=== PATIENT | female | born 1970 | race Caucasian/White ===

== ENCOUNTER 2020-08-18 17:30 | Outpatient (CLI) | payer OTHER, SELFPAY ==
--- NOTE | ~2020-08-18 | MM_ITS ---
EXAMINATION: MM screening denise BI w judson HISTORY: Screening mammogram TECHNIQUE: Craniocaudal and mediolateral oblique 3-D tomosynthesis images were obtained and synthetic 2-D images were generated. CAD analysis was submitted and interpreted. COMPARISON: 12/19/2018 bilateral digital screening mammogram 10/14/2017 diagnostic right digital mammogram and complete right breast ultrasound 10/07/2017, 10/11/2015 bilateral digital screening mammogram examinations BREAST PARENCHYMAL COMPOSITION: The breasts are heterogeneously dense, which may obscure small masses . FINDINGS: There is no evidence of suspicious mass, calcification, or architectural distortion to sugg est malignancy in either breast. There has been no suspicious interval change. IMPRESSION: 1. No mammographic evidence of malignancy. 2. Recommend routine screening mammography in one year. BI-RADS Category 1: Negative Reviewed, dictated and finalized at location A.
== END 2020-08-18 17:31 | disposition home or self-care (01) ==
LOC: ANHIMG 17:34
PROVIDERS: PCP Family Medicine; Visit Provider Obstetrics & Gynecology
DX: Z12.31 Encounter for screening mammogram for malignant neoplasm of breast (principal)
CPT/HCPCS: 77063; 77067

== ENCOUNTER 2021-08-27 13:24 | Emergency (ER) | payer OTHER, SELFPAY ==
[2021-08-27 13:31] VITALS: BP 151/89; PULSE 98; RESP 18; TEMP 36.6; O2SAT 97
--- NOTE | 2021-08-27 16:03 | PC.NURSE ---
Dressing re-applied with gauze, kerlix, and coban. CSM intact after first and second dressing applied. Bleeding controlled.
--- NOTE | 2021-08-27 17:24 | PC.NURSE ---
Patient seen ambulating out of ED with no difficulty and with all belongings. Dressing still intact.
== END 2021-08-27 17:24 | disposition left against medical advice (07) ==
PROVIDERS: PCP Family Medicine
DX: M25.562 Pain in left knee (principal); Z53.21 Procedure and treatment not carried out due to patient leaving prior to being seen by health care provider
CPT/HCPCS: 99199

== ENCOUNTER 2023-04-09 07:00 | Outpatient (NON) | payer BC, SELFPAY | END 2023-04-09 07:01 | disposition home or self-care (01) | LOC: ANHLAB 04-10 12:18 | PROVIDERS: PCP Family Medicine; Visit Provider Nurse Practitioner | DX: L72.11 Pilar cyst (principal) | CPT/HCPCS: 88304 ==